=== PATIENT | male | born 1995 | race Hispanic/Latino ===

== ENCOUNTER 2018-09-07 12:28 | Emergency (ER) | payer BC ==
[2018-09-07] MEDS ORDERED: Sodium Chloride 0.9% 1,000 ML IV ONE (13:17)
[2018-09-07 13:37] LABS: BASO # 0.1 K/uL (0.0-0.2); BASO % 0.8 % (0.0-2.0); EOS % 0.2 % (0.0-4.0); HEMOGLOBIN 16.4 g/dL (12.0-18.0); LYMPH # 1.1 K/uL (1.0-4.3); LYMPH % 12.2 % (20.0-40.0); MEAN CELL VOLUME 85.5 fL (80.0-94.0); MEAN CORPUSCULAR HEMOGLOBIN 30.1 pg (27.0-31.0); MEAN CORPUSCULAR HGB CONC 35.2 g/dL (33.0-37.0); NEUT # 6.8 K/uL (1.8-7.0); NEUT % 75.8 % (50.0-75.0); NRBC % 0.1 % (0.0-2.0); RBC 5.44 Mil/uL (4.40-5.90); RED CELL DISTRIBUTION WIDTH 13.3 % (11.5-14.5)
[2018-09-07] MEDS ORDERED: Iohexol 240 (50 ml) PO STA (13:48)
[2018-09-07 13:50] LABS: ALB/GLOB RATIO 1.5 (1.0-2.1); ALBUMIN 4.5 g/dL (3.5-5.0); ALT/SGPT 46 U/L (21-72); AST/SGOT 32 U/L (17-59); BLOOD UREA NITROGEN 12 mg/dL (9-20); CALCIUM 9.4 mg/dl (8.6-10.4); GFR NON-AFRICAN AMERICAN > 60; LIPASE 44 U/L (23-300)
--- NOTE | 2018-09-07 14:24 | C.PDOC ---
History Of Present Illness 22 year old male presents to the ED for evaluation of lower abdominal pain associated with diarrhea and vomiting for 3 days. Patient reports no episodes of vomiting today and today noticed a decrease in episodes of diarrhea since . Pt went to the Urgent Care yesterday where he was prescribed Ciprofloxacin, Flagyl and Zofran. He took one dose of medications today and one yesterday with no improvement of symptoms. Denies dysuria, testicular pain, fever, chest pain, sob, and any other associated symptoms. No known sick c ontacts. Time Seen by Provider: 09/07/18 12:49 Chief Complaint (Nursing): Abdominal Pain History Per: Patient History/Exam Limitations: no limitations Onset/Duration Of Symptoms: Days Current Symptoms Are (Timing): Still Present Past Medical History Reviewed: Historical Data, Nursing Documentation, Vital Signs Vital Signs: Last Vital Signs Temp 98.5 F 09/07/18 12:33 Pulse 100 H 09/07/18 12:33 Resp 18 09/07/18 12:33 BP 138/90 09/07/18 12:33 Pulse Ox 96 09/07/18 12:33 Family History: States: Unknown Family Hx - Social History Hx Alcohol Use: Yes Hx Substance Use: No - Immunization History Hx Tetanus Toxoid Vaccination: No Hx Influenza Vaccination: No Hx Pneumococcal Vaccination: No Review Of Systems Except As Marked, All Systems Reviewed And Found Negative. Constitutional: Negative for: Fever, Chills Gastrointestinal: Positive for: Abdominal Pain (lower.) Genitourinary: Positive for: Scrotal Pain. Negative for: Dysuria, Other (testicular pain. ) Physical Exam - Physical Exam Appears: Well, Non-toxic, No Acute Distress Skin: Normal Color, Warm, Dry Head: Atraumatic, Normacephalic Eye(s): bilateral: Normal Inspection, EOMI Nose: Normal Oral Mucosa: Moist Neck: Normal ROM, Supple Chest: Symmetrical, No Deformity Cardiovascular: Rhythm Regular Respiratory: Normal Breath Sounds, No Rales, No Rhonchi, No Wheezing Gastrointestinal/Abdominal: Bowel Sounds, Soft, Tenderness (to the left lower quadrant. ) Back: No CVA Tenderness, No Vertebral Tenderness Extremity: Normal ROM (x4) Neurological/Psych: Oriented x3, Normal Speech, Normal Sensation Gait: Steady ED Course And Treatment - Laboratory Results Result Diagrams: 09/07/18 13:33 09/07/18 13:33 O2 Sat by Pulse Oximetry: 96 (RA) Pulse Ox Interpretation: Normal - CT Scan/US CT ABD Other Rad Studies (CT/US): Read By Radiologist CT/US Interpretation: FINDINGS: LOWER THORAX: No visible consolidation, pleural effusion, or pneumothorax. LIVER: Subtle hypodensity of the right hepatic lobe adjacent to the falciform ligament, possibly focal fatty infiltration. GALLBLADDER AND BILE DUCTS: Unremarkable. PANCREAS: Unremarkable. SPLEEN: Unremarkable. ADRENALS: Unremarkable. KIDNEYS AND URETERS: The kidneys enhance symmetrically. No hydronephrosis or obstructing renal calculus. BLADDER: The urinary bladder appears thick walled, possibly exaggerated by under distension. REPRODUCTIVE: Unremarkable. APPENDIX: The appendix appears within normal limits of caliber. No secondary signs of acute appendicitis. BOWEL: The stomach is nondistended. The bowel loops appear within normal limits of caliber without evidence of intestinal obstruction. Marked wall thickening and inflammation of the left colon may reflect colitis (i.e. Infectious, inflammatory, ischemic). Additional region of narrowing at the rectosigmoid colon (series 3, image 164), also possible focal colitis. PERITONEUM: No significant free fluid. No definite free air. LYMPH NODES: No bulky lymphadenopathy identified. VASCULATURE: No aortic aneurysm. BONES: No acute osseous abnormality is detected. OTHER FINDINGS: None. IMPRESSION: Marked wall thickening and inflammation of the left colon may reflect colitis (i.e. Infectious, inflammatory, ischemic). Additional region of narrowing at the rectosigmoid colon, also possible focal colitis. The urinary bladder appears thick walled, possibly exaggerated by under distension. Progress Note: Blood sent. CT Pelvis IV Contrast. Given Pepcid, Toradol, and Flagyl. Urinalysis. On re-evaluation, patient reports feeling better after medications. Able to tolerate PO contrast without antiemetic. Abdomen soft, nontender. Afebrile. Instructed to continue antibiotic treatment and return to [facility] ED within 24 hours if symptoms perisisted. Case discussed with Dr Salazar, agreed upon plan and discharge. Disposition - Disposition Referrals: Radames Post MD [Staff Provider] - Disposition: HOME/ ROUTINE Disposition Time: 17:28 Condition: STABLE Additional Instructions: Follow up with your PMD and GI in 1-2 days. Return to ER if symptoms persist or worsen. 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 - Scribe Statement The provider has reviewed the documentation as recorded by the Scribe (Bess Collier)
[2018-09-07] MEDS ORDERED: Iohexol 240 (50 ml) ONE (14:31)
[2018-09-07] MEDS ORDERED: Iodixanol 320 MG/ML 100 ML BOTTLE IV ONE (16:07)
--- NOTE | 2018-09-07 17:08 | CT ---
PROCEDURE: CT Abdomen and Pelvis with oral and IV contrast. HISTORY: abd pain COMPARISON: None. TECHNIQUE: Contiguous axial images of the abdomen and pelvis. Oral and IV contrast was administered. Coronal and Sagittal reformats generated and reviewed. Contrast dose: 100 mL Visipaque IV Radiation dose: Total exam DLP = 1126.68 mGy-cm. This CT exam was performed using one or more of the following dose reduction techniques: Automated exposure control, adjustment of the mA and/or kV according to patient size, and/or use of iterative reconstruction technique. FINDINGS: LOWER THORAX: No visible consolidation, pleural effusion, or pneumothorax. LIVER: Subtle hypodensity of the right hepatic lobe adjacent to the falciform ligament, possibly focal fatty infiltration. GALLBLADDER AND BILE DUCTS: Unremarkable. PANCREAS: Unremarkable. SPLEEN: Unremarkable. ADRENALS: Unremarkable. KIDNEYS AND URETERS: The kidneys enhance symmetrically. No hydronephrosis or obstructing renal calculus. BLADDER: The urinary bladder appears thick walled, possibly exaggerated by under distension. REPRODUCTIVE: Unremarkable. APPENDIX: The appendix appears within normal limits of caliber. No secondary signs of acute appendicitis. BOWEL: The stomach is nondistended. The bowel loops appear within normal limits of caliber without evidence of intestinal obstruction. Marked wall thickening and inflammation of the left colon may reflect colitis (i.e. Infectious, inflammatory, ischemic). Additional region of narrowing at the rectosigmoid colon (series 3, image 164), also possible focal colitis. PERITONEUM: No significant free fluid. No definite free air. LYMPH NODES: No bulky lymphadenopathy identified. VASCULATURE: No aortic aneurysm. BONES: No acute osseous abnormality is detected. OTHER FINDINGS: None. IMPRESSION: Marked wall thickening and inflammation of the left colon may reflect colitis (i.e. Infectious, inflammatory, ischemic). Additional region of narrowing at the rectosigmoid colon, also possible focal colitis. The urinary bladder appears thick walled, possibly exaggerated by under distension.
[2018-09-07] MEDS ORDERED: metroNIDAZOLE IV 500 mg/100 ml 500 MG/100 ML BAG ONE (17:23)
[2018-09-07] MEDS ORDERED: metroNIDAZOLE IV 500 mg/100 ml 500 MG/100 ML BAG IV STA (17:26)
[2018-09-07] MEDS ORDERED: metroNIDAZOLE IV 500 mg/100 ml 500 MG/100 ML BAG IV SCH (17:30)
[2018-09-07 18:02] VITALS: BP 119/69; PULSE 70; RESP 16; TEMP 97.8
[2018-09-07 18:03] VITALS: O2SAT 96
== END 2018-09-07 18:01 | disposition home or self-care (01) ==
LOC: C.ER 12:28
DX: K52.9 Noninfective gastroenteritis and colitis, unspecified (principal); R10.32 Left lower quadrant pain
CPT/HCPCS: 74177; 80053; 83690; 85025; 96361; 96365; 96375; 99284; J1885; J7030; Q9966; Q9967

== ENCOUNTER 2018-10-07 07:30 | Day surgery (SDC) | payer BC ==
[2018-10-07] MEDS ORDERED: Propofol 10 mg/ml Inj (20 ML) ONE ×2 (09:27→09:35)
[2018-10-07] MEDS ORDERED: Lactated Ringer's 1,000 ML IV ONE (09:33)
[2018-10-07] MEDS ORDERED: Midazolam 2 MG/2 ML VIAL ONE (09:35)
[2018-10-07 10:18] VITALS: O2SAT 100
[2018-10-07 11:20] VITALS: BP 113/67; PULSE 86; RESP 10; TEMP 98.1
== END 2018-10-07 11:15 | disposition home or self-care (01) ==
LOC: C.ENDO 07:30
PROVIDERS: ATTEND Internal Medicine Gastroenterology
DX: K52.9 Noninfective gastroenteritis and colitis, unspecified (principal); K64.0 First degree hemorrhoids
CPT/HCPCS: 45380; 87045; 87177; 87209; 87230; 88305; J2250; J2704; J7120